=== PATIENT | male | born 1970 ===

== ENCOUNTER 2020-04-13 09:03 | Day surgery (SDC) | payer OTHER | END 2020-04-13 14:25 | disposition home or self-care (01) | LOC: AMB-ENDOS 09:03 | PROVIDERS: ATTEND Colon & Rectal Surgery | DX: K62.89 Other specified diseases of anus and rectum (principal); K64.0 First degree hemorrhoids; Z20.828 Contact with and (suspected) exposure to other viral communicable diseases ==

== ENCOUNTER 2020-10-16 08:24 | Outpatient (CLI) | payer OTHER | END 2020-10-16 08:41 | disposition home or self-care (01) | LOC: TOM 08:24 | PROVIDERS: ATTEND Colon & Rectal Surgery | DX: K57.20 Diverticulitis of large intestine with perforation and abscess without bleeding (principal) ==

== ENCOUNTER → 2020-10-16 11:33 | Outpatient (CLI) | payer OTHER | END | disposition home or self-care (01) | LOC: LAB 11:33 | PROVIDERS: ATTEND Radiology Diagnostic Radiology | DX: N20.0 Calculus of kidney (principal) ==